=== PATIENT | male | born 1960 | race Hispanic/Latino ===

== ENCOUNTER 2022-05-08 17:38 | Inpatient (IN) | payer BC ==
[~2022-05-08] VITALS: Ht 157.5 cm; Wt 73.2 kg
[~2022-05-08 17:38] MED LIST: EPINEPHRINE 1MG/10ML(1:10,000) 0.1 MG/ML SYG IVP ONE; SUCCINYLCHOLINE CHLORIDE 20 MG/ML 10 ML VIAL IVP ONE
[2022-05-08] MEDS ORDERED: 0.9%NACL 1000ML 1,000 ML IV ONE ×2 (18:30→20:00)
[2022-05-08 18:47] LABS: BASOPHILS % (AUTO) 0.3 % (0.0-5.0); EOSINOPHILS % (AUTO) 0.3 % (0.0-8.0); HEMATOCRIT 30.1 % (42-54); LYMPHOCYTES % (AUTO) 23.5 % (21.0-51.0); MEAN CORPUSCULAR HGB CONC 31.2 g/dL (32.0-36.0); MEAN CORPUSCULAR VOLUME 83.4 fL (79-99); MONOCYTES % (AUTO) 10.6 % (3.0-13.0); NEUTROPHILS % (AUTO) 65.1 % (40.0-77.0); PLATELET COUNT (AUTO) 392 K/uL (130-400); RED BLOOD CELL COUNT(AUTO) 3.61 MIL/uL (4.50-6.20); RED CELL DISTRIBUTION WIDTH 17.3 % (11.0-15.5); WHITE BLOOD COUNT (AUTO) 6.2 K/uL (4.8-10.8)
[2022-05-08 19:04] LABS: ALBUMIN 2.8 g/dL (3.5-5.0); TOTAL PROTEIN, SERUM 5.6 g/dL (6.0-8.3)
[2022-05-08] MEDS ORDERED: NOREPINEPHRIN 4MG/NS 250ML 250 ML IV ONE (19:15)
[2022-05-08 19:34] LABS: APPEARANCE,URINE CLEAR (CLEAR); BILIRUBIN,URINE NEGATIVE (NEGATIVE); COLOR,URINE LIGHT-YELLOW (YELLOW); GLUCOSE, URINE (UA) NEGATIVE (NEGATIVE); KETONES,URINE NEGATIVE (NEGATIVE); LEUKOCYTE ESTERASE ,URINE NEGATIVE Leu/uL (NEGATIVE); NITRATE,URINE NEGATIVE (NEGATIVE); PROTEIN,URINE NEGATIVE (NEGATIVE); UROBILINOGEN,URINE 0.2 mg/dL (0.2-1.0)
[2022-05-08 19:37] LABS: BACTERIA,URINE RARE /HPF (None Seen); MUCUS,URINE RARE LPF (None Seen)
[2022-05-08] MEDS ORDERED: CEFEPIME HCL 2 GM VIAL IVP SCH (20:00)
[2022-05-08] MEDS: NS-20 MEQ KCL 1000ML 1,000 ML IV SCH ×2 (20:04→22:22)
[2022-05-08] MEDS ORDERED: NOREPINEPHRIN 4MG/NS 250ML 250 ML IV SCH (22:00)
[2022-05-09] VITALS (20 sets, daily range): BP systolic 112–154; BP diastolic 71–98
[2022-05-09] MEDS ORDERED: ONDANSETRON 4MG INJ IVP PRN (08:00)
[2022-05-09] MEDS ORDERED: HYDRALAZINE 20MG/ML VIAL IV PRN (08:00)
[2022-05-09] MEDS ORDERED: LABETALOL 20MG SYG IV PRN (08:00)
[2022-05-09 08:16] LABS: HEMATOCRIT 34.7 % (42-54); MEAN CORPUSCULAR HEMOGLOBIN 26.6 pg (27.0-33.0); MEAN CORPUSCULAR HGB CONC 31.4 g/dL (32.0-36.0); MEAN CORPUSCULAR VOLUME 84.6 fL (79-99); RED BLOOD CELL COUNT(AUTO) 4.1 MIL/uL (4.50-6.20); RED CELL DISTRIBUTION WIDTH 17.2 % (11.0-15.5)
[2022-05-09 08:28] LABS: CREATININE 0.7 mg/dL (0.5-1.5); POTASSIUM 3.7 mmol/L (3.5-5.1)
[2022-05-09] MEDS ORDERED: DEXTROSE 5 %-0.45 % NACL 1,000 ML IV SCH (10:00)
[2022-05-09] MEDS ORDERED: 0.9% NACL 250ML 250 ML ONE (10:27)
[2022-05-09] MEDS: DOXYCYCLINE 100MG+NS 250ML IV SCH ×2 (10:28→22:14)
[2022-05-09] MEDS: FLUCONAZOLE 400 MG/NS 200 ML 200 ML IV SCH (10:28)
[2022-05-09] MEDS ORDERED: MEGE40L PO (10:54)
[2022-05-09] MEDS ORDERED: LEVO100C4 PO (10:54)
[2022-05-09] MEDS ORDERED: NEOM7.5D3 OP (10:54)
[2022-05-09] MEDS ORDERED: PHARMACY COMMUNICATION MISC SCH ×2 (11:00→16:00)
[2022-05-09] MEDS: INSULIN HUMULIN R 100 UNIT/ML 3ML SQ SCH ×3 (11:30→20:27)
[2022-05-09] MEDS: POLY OD SCH ×4 (12:18→22:16)
[2022-05-09] MEDS: NEO OD SCH ×4 (12:18→22:16)
[2022-05-09] MEDS: [UNRECOGNIZED DRUG - OTHER] OD SCH ×4 (12:18→22:16)
[2022-05-09] MEDS ORDERED: DEXTROSE 50%-WATER 50 ML DISP.SYRIN IV ONE (12:26)
[2022-05-09] MEDS ORDERED: DEXTROSE 50%-WATER 50 ML DISP.SYRIN IV PRN (13:00)
[2022-05-09] MEDS ORDERED: GLUCAGON 1MG KIT 1 MG ML IM PRN (13:00)
[2022-05-09] MEDS: LIDOCAINE HCL-MPF 1% 2ML VIAL IV PRN (13:42)
[2022-05-09] MEDS: POTASSIUM CHLORIDE 20MEQ/100ML 100 ML IV PRN (13:42)
[2022-05-09] MEDS ORDERED: DEXTROSE 5 % AND 0.9 % NACL 1,000 ML IV SCH (13:44)
[2022-05-09] MEDS ORDERED: SODIUM CHLORIDE 3% FOR INHALATION 4 ML/AMP VIAL.NEB IH ONE (15:54)
[2022-05-09] MEDS ORDERED: CEFEPIME HCL 2 GM VIAL IVPB SCH (20:00)
[2022-05-09] MEDS: SODIUM HYPOCHLORITE 0.25% [HALF STRENGTH] 473 ML TOPICAL SOLN TP SCH (20:32)
[2022-05-10 00:14] VITALS: BP 147/96
[2022-05-10 03:59] VITALS: BP 143/83
[2022-05-10] MEDS: LEVOTHYROXINE 100 MCG TABLET PO SCH (04:44)
[2022-05-10 05:00] LABS: BASOPHILS % (AUTO) 0.3 % (0.0-5.0); EOSINOPHILS % (AUTO) 0.1 % (0.0-8.0); HEMATOCRIT 34.9 % (42-54); LYMPHOCYTES % (AUTO) 10.4 % (21.0-51.0); MEAN CORPUSCULAR HEMOGLOBIN 26.3 pg (27.0-33.0); MEAN CORPUSCULAR HGB CONC 31.5 g/dL (32.0-36.0); MEAN CORPUSCULAR VOLUME 83.5 fL (79-99); MONOCYTES % (AUTO) 7.4 % (3.0-13.0); NEUTROPHILS % (AUTO) 81.4 % (40.0-77.0); PLATELET COUNT (AUTO) 329 K/uL (130-400); RED BLOOD CELL COUNT(AUTO) 4.18 MIL/uL (4.50-6.20); RED CELL DISTRIBUTION WIDTH 17.2 % (11.0-15.5); WHITE BLOOD COUNT (AUTO) 7.7 K/uL (4.8-10.8)
[2022-05-10 05:18] LABS: CREATININE 0.7 mg/dL (0.5-1.5); MAGNESIUM 0.7 mg/dL (1.80-2.40); PHOSPHORUS 2.6 mg/dL (2.5-4.9); POTASSIUM 3.1 mmol/L (3.5-5.1)
[2022-05-10 05:23] LABS: % IRON SATURATION 5.6 % (30-44)
[2022-05-10 05:52] LABS: B-TYPE NATRIURETIC PEPTIDE 157 pg/mL (0-100)
[2022-05-10] MEDS: INSULIN HUMULIN R 100 UNIT/ML 3ML SQ SCH ×4 (05:52→21:00)
[2022-05-10] MEDS: LIDOCAINE HCL-MPF 1% 2ML VIAL IV PRN ×2 (05:53→15:11)
[2022-05-10] MEDS: POTASSIUM CHLORIDE 20MEQ/100ML 100 ML IV PRN ×2 (05:53→15:11)
[2022-05-10] MEDS: POLY OD SCH ×4 (05:54→21:41)
[2022-05-10] MEDS: [UNRECOGNIZED DRUG - OTHER] OD SCH ×4 (05:54→21:41)
[2022-05-10] MEDS: NEO OD SCH ×4 (05:54→21:41)
[2022-05-10 08:07] VITALS: BP 127/87
[2022-05-10] MEDS: DRONABINOL 2.5 MG CAP PO SCH (09:09)
[2022-05-10] MEDS: FLUCONAZOLE 400 MG/NS 200 ML 200 ML IV SCH (09:09)
[2022-05-10] MEDS: SODIUM HYPOCHLORITE 0.25% [HALF STRENGTH] 473 ML TOPICAL SOLN TP SCH ×2 (09:11→21:40)
[2022-05-10] MEDS: DOXYCYCLINE 100MG+NS 250ML IV SCH ×2 (09:55→21:39)
[2022-05-10 11:35] VITALS: BP 113/80
[2022-05-10] MEDS: MAGNESIUM 2GM PREMIX 50ML 50 ML IV SCH ×2 (13:01→17:15)
[2022-05-10 15:49] VITALS: BP 127/79
[2022-05-10 20:51] VITALS: BP 138/69
[2022-05-10] MEDS ORDERED: 0.9% NACL 250ML 250 ML ONE (21:38)
[2022-05-11] VITALS (7 sets, daily range): BP systolic 124–156; BP diastolic 63–91
[2022-05-11] MEDS: POTASSIUM CHLORIDE 20MEQ/100ML 100 ML IV PRN (01:03)
[2022-05-11] MEDS: LIDOCAINE HCL-MPF 1% 2ML VIAL IV PRN (01:04)
[2022-05-11] MEDS: LEVOTHYROXINE 100 MCG TABLET PO SCH (03:32)
[2022-05-11 04:33] LABS: BASOPHILS % (AUTO) 0.6 % (0.0-5.0); EOSINOPHILS % (AUTO) 0.3 % (0.0-8.0); HEMATOCRIT 34.4 % (42-54); LYMPHOCYTES % (AUTO) 11.5 % (21.0-51.0); MEAN CORPUSCULAR HEMOGLOBIN 26.4 pg (27.0-33.0); MEAN CORPUSCULAR HGB CONC 31.1 g/dL (32.0-36.0); MEAN CORPUSCULAR VOLUME 84.9 fL (79-99); MONOCYTES % (AUTO) 9.8 % (3.0-13.0); NEUTROPHILS % (AUTO) 77.5 % (40.0-77.0); PLATELET COUNT (AUTO) 352 K/uL (130-400); RED BLOOD CELL COUNT(AUTO) 4.05 MIL/uL (4.50-6.20); RED CELL DISTRIBUTION WIDTH 17.2 % (11.0-15.5); WHITE BLOOD COUNT (AUTO) 6.6 K/uL (4.8-10.8)
[2022-05-11 04:53] LABS: CREATININE 0.7 mg/dL (0.5-1.5); MAGNESIUM 1.5 mg/dL (1.80-2.40); POTASSIUM 3.2 mmol/L (3.5-5.1)
[2022-05-11] MEDS: NEO OD SCH ×3 (05:04→17:34)
[2022-05-11] MEDS: POLY OD SCH ×3 (05:04→17:34)
[2022-05-11] MEDS: [UNRECOGNIZED DRUG - OTHER] OD SCH ×3 (05:04→17:34)
[2022-05-11] MEDS: MAGNESIUM 2GM PREMIX 50ML 50 ML IV PRN (05:43)
[2022-05-11] MEDS: INSULIN HUMULIN R 100 UNIT/ML 3ML SQ SCH ×4 (06:17→21:00)
[2022-05-11] MEDS: IPRATROPIUM/ALBUTEROL SULFATE 3 ML SOLUTION IH SCH ×5 (06:52→22:00)
[2022-05-11] MEDS ORDERED: IPRATROPIUM 0.5 MG/2.5 ML INH IH ONE ×4 (07:14→18:26)
[2022-05-11] MEDS ORDERED: ALBUTEROL 0.042% 1.25MG/3ML IH ONE ×4 (07:14→18:22)
[2022-05-11] MEDS: FLUCONAZOLE 400 MG/NS 200 ML 200 ML IV SCH (08:43)
[2022-05-11] MEDS: DRONABINOL 2.5 MG CAP PO SCH (08:44)
[2022-05-11] MEDS: SODIUM HYPOCHLORITE 0.25% [HALF STRENGTH] 473 ML TOPICAL SOLN TP SCH (08:44)
[2022-05-11] MEDS ORDERED: 0.9% NACL 250ML 250 ML ONE (10:17)
[2022-05-11] MEDS: DOXYCYCLINE 100MG+NS 250ML IV SCH ×2 (10:19→21:41)
[2022-05-11 13:25] LABS: INR 1.05 (0.85-1.15); PROTHROMBIN TIME 11.4 SEC (9.6-11.6)
[2022-05-11 13:27] LABS: PARTIAL THROMBOPLASTIN TIME 29.8 SEC (26.3-35.5)
[2022-05-12] MEDS: POLY OD SCH ×5 (00:08→23:30)
[2022-05-12] MEDS: [UNRECOGNIZED DRUG - OTHER] OD SCH ×5 (00:08→23:30)
[2022-05-12] MEDS: SODIUM HYPOCHLORITE 0.25% [HALF STRENGTH] 473 ML TOPICAL SOLN TP SCH ×3 (00:08→22:28)
[2022-05-12] MEDS: NEO OD SCH ×5 (00:08→23:30)
[2022-05-12] MEDS: IPRATROPIUM/ALBUTEROL SULFATE 3 ML SOLUTION IH SCH ×5 (02:00→18:00)
[2022-05-12] MEDS ORDERED: ALBUTEROL 0.042% 1.25MG/3ML IH ONE ×4 (02:11→22:58)
[2022-05-12] MEDS ORDERED: IPRATROPIUM 0.5 MG/2.5 ML INH IH ONE ×5 (02:12→23:09)
[2022-05-12 03:25] VITALS: BP 118/65
[2022-05-12 04:40] LABS: BASOPHILS % (AUTO) 0.5 % (0.0-5.0); EOSINOPHILS % (AUTO) 0.5 % (0.0-8.0); HEMATOCRIT 31.5 % (42-54); LYMPHOCYTES % (AUTO) 10.3 % (21.0-51.0); MEAN CORPUSCULAR HEMOGLOBIN 26.4 pg (27.0-33.0); MEAN CORPUSCULAR HGB CONC 30.8 g/dL (32.0-36.0); MEAN CORPUSCULAR VOLUME 85.8 fL (79-99); MONOCYTES % (AUTO) 10.6 % (3.0-13.0); NEUTROPHILS % (AUTO) 77.8 % (40.0-77.0); PLATELET COUNT (AUTO) 300 K/uL (130-400); RED BLOOD CELL COUNT(AUTO) 3.67 MIL/uL (4.50-6.20); RED CELL DISTRIBUTION WIDTH 17.5 % (11.0-15.5); WHITE BLOOD COUNT (AUTO) 6.1 K/uL (4.8-10.8)
[2022-05-12 05:00] LABS: CREATININE 0.6 mg/dL (0.5-1.5); PHOSPHORUS 2.8 mg/dL (2.5-4.9)
[2022-05-12] MEDS: LEVOTHYROXINE 100 MCG TABLET PO SCH (05:15)
[2022-05-12] MEDS: POTASSIUM CHLORIDE 20MEQ/100ML 100 ML IV PRN ×2 (05:18→06:54)
[2022-05-12] MEDS: INSULIN HUMULIN R 100 UNIT/ML 3ML SQ SCH ×4 (07:30→21:00)
[2022-05-12 08:00] VITALS: BP 132/85
[2022-05-12] MEDS: DRONABINOL 2.5 MG CAP PO SCH (08:35)
[2022-05-12] MEDS: FLUCONAZOLE 400 MG/NS 200 ML 200 ML IV SCH (09:07)
[2022-05-12] MEDS: DOXYCYCLINE 100MG+NS 250ML IV SCH ×2 (10:00→22:28)
[2022-05-12] MEDS ORDERED: 0.9%NACL 1000ML 1,000 ML IV ONE (10:56)
[2022-05-12] MEDS: MAGNESIUM 2GM PREMIX 50ML 50 ML IV SCH ×3 (12:00→18:02)
[2022-05-12] MEDS ORDERED: BENZOCAINE 20% 57 GM SPRAY ONE (13:08)
[2022-05-12] MEDS ORDERED: PROPOFOL 10 MG/ML 20ML VIAL IV ONE ×2 (13:09)
[2022-05-12] MEDS ORDERED: MIDAZOLAM HCL 1 MG/ML 5ML VIAL ONE (13:10)
[2022-05-12] MEDS ORDERED: LIDOCAINE HCL 1% 20 ML VIAL ONE (13:10)
[2022-05-12 16:00] VITALS: BP 141/90
[2022-05-12 19:19] VITALS: BP 107/63
[2022-05-12] MEDS ORDERED: 0.9% NACL 250ML 250 ML ONE (22:07)
[2022-05-12 22:57] VITALS: BP 120/51
[2022-05-13] VITALS (86 sets, daily range): BP systolic 0–146; BP diastolic 0–93
[2022-05-13 04:27] LABS: BASOPHILS % (AUTO) 0.7 % (0.0-5.0); EOSINOPHILS % (AUTO) 0.5 % (0.0-8.0); HEMATOCRIT 32.6 % (42-54); LYMPHOCYTES % (AUTO) 13.3 % (21.0-51.0); MEAN CORPUSCULAR HEMOGLOBIN 26.4 pg (27.0-33.0); MEAN CORPUSCULAR HGB CONC 29.1 g/dL (32.0-36.0); MEAN CORPUSCULAR VOLUME 90.6 fL (79-99); MONOCYTES % (AUTO) 10.7 % (3.0-13.0); NEUTROPHILS % (AUTO) 74.6 % (40.0-77.0); PLATELET COUNT (AUTO) 311 K/uL (130-400); RED CELL DISTRIBUTION WIDTH 17.9 % (11.0-15.5); WHITE BLOOD COUNT (AUTO) 5.7 K/uL (4.8-10.8)
[2022-05-13 04:34] LABS: CREATININE 0.6 mg/dL (0.5-1.5); MAGNESIUM 1.3 mg/dL (1.80-2.40)
[2022-05-13 04:39] LABS: POTASSIUM 2.9 mmol/L (3.5-5.1)
[2022-05-13] MEDS: [UNRECOGNIZED DRUG - OTHER] OD SCH ×4 (05:30→21:38)
[2022-05-13] MEDS: POLY OD SCH ×4 (05:30→21:38)
[2022-05-13] MEDS: NEO OD SCH ×4 (05:30→21:38)
[2022-05-13 05:37] LABS: ABG BASE EXCESS -7.1 mmol/L (-2.0-3.0); ABG HCO3 19.7 mmol/L (21.0-28.0); ABG OXYGEN SATURATION 99.7 % (95.0-99.0); ABG PCO2 45 mmHg (35-48)
[2022-05-13] MEDS ORDERED: PROPOFOL 1000 MG/100 ML 100 ML IV ONE (05:45)
[2022-05-13] MEDS: IPRATROPIUM/ALBUTEROL SULFATE 3 ML SOLUTION IH SCH ×3 (06:00→11:29)
[2022-05-13] MEDS ORDERED: SODIUM BICARB 50MEQ 50ML VIAL 150 ML ONE (06:29)
[2022-05-13] MEDS ORDERED: SODIUM BICARB 50MEQ 50ML VIAL IV SCH (06:30)
[2022-05-13] MEDS: LEVOTHYROXINE 100 MCG TABLET PO SCH (06:30)
[2022-05-13] MEDS ORDERED: NOREPINEPHRIN 4MG/NS 250ML 250 ML IV ONE (06:37)
[2022-05-13] MEDS ORDERED: ALBUTEROL 0.042% 1.25MG/3ML IH ONE ×4 (06:51→22:48)
[2022-05-13] MEDS ORDERED: IPRATROPIUM 0.5 MG/2.5 ML INH IH ONE ×4 (06:53→23:09)
[2022-05-13] MEDS: INSULIN HUMULIN R 100 UNIT/ML 3ML SQ SCH ×4 (07:30→21:00)
[2022-05-13] MEDS: DRONABINOL 2.5 MG CAP PO SCH (07:38)
[2022-05-13 08:11] LABS: ABG BASE EXCESS 7.5 mmol/L (-2.0-3.0); ABG HCO3 32.5 mmol/L (21.0-28.0); ABG OXYGEN SATURATION 99.2 % (95.0-99.0); ABG PCO2 47 mmHg (35-48)
[2022-05-13] MEDS: FLUCONAZOLE 400 MG/NS 200 ML 200 ML IV SCH (08:25)
[2022-05-13] MEDS: MAGNESIUM 2GM PREMIX 50ML 50 ML IV PRN ×3 (08:26→21:32)
[2022-05-13] MEDS: POTASSIUM CHLORIDE 20MEQ/100ML 100 ML IV PRN ×6 (08:39→22:46)
[2022-05-13] MEDS: SODIUM HYPOCHLORITE 0.25% [HALF STRENGTH] 473 ML TOPICAL SOLN TP SCH ×2 (08:39→21:38)
[2022-05-13] MEDS: PROPOFOL 1000 MG/100 ML IV PRN ×2 (10:17→14:39)
[2022-05-13] MEDS: DOXYCYCLINE 100MG+NS 250ML IV SCH (10:18)
[2022-05-13] MEDS ORDERED: VANCOMYCIN 1G VIAL IVPB SCH (14:00)
[2022-05-13] MEDS ORDERED: 0.9% NACL 250ML IV SCH (14:00)
[2022-05-13] MEDS ORDERED: VANCOMYCIN PROTOCOL PER PHARMACY IV SCH (14:00)
[2022-05-13] MEDS ORDERED: RENAL DOSE IV PRN (14:00)
[2022-05-13 14:21] LABS: APPEARANCE,URINE CLEAR (CLEAR); BILIRUBIN,URINE NEGATIVE (NEGATIVE); COLOR,URINE LIGHT-YELLOW (YELLOW); GLUCOSE, URINE (UA) 300 mg/dL (NEGATIVE); KETONES,URINE NEGATIVE (NEGATIVE); LEUKOCYTE ESTERASE ,URINE NEGATIVE Leu/uL (NEGATIVE); MUCUS,URINE RARE LPF (None Seen); NITRATE,URINE NEGATIVE (NEGATIVE); OCCULT BLOOD,URINE NEGATIVE (NEGATIVE); OTHER CASTS, URINE 1 /LPF (None Seen); PH,URINE 7.5 (5.0-8.0); PROTEIN,URINE NEGATIVE (NEGATIVE); SQUAMOUS EPITHELIAL CELL,UR RARE /HPF (0-2); UROBILINOGEN,URINE 0.2 mg/dL (0.2-1.0); WBC,URINE 0-1 /HPF (0-1)
[2022-05-13] MEDS: NOREPINEPHRIN 4MG/NS 250ML 250 ML IV PRN ×2 (14:40→22:24)
[2022-05-13] MEDS: MEROPENEM 1 GM VIAL IVP SCH (14:40)
[2022-05-13] MEDS ORDERED: FENTANYL 2500MCG+NS 250ML IV.SOLN IV SCH (15:00)
[2022-05-13] MEDS: FENTANYL 2500MCG+NS 250ML 250 ML IV SCH (15:33)
[2022-05-13] MEDS: DEXAMETHASONE SOD PHOSPHATE 4 MG/ML 1ML VIAL IV SCH ×2 (15:51→21:31)
[2022-05-13] MEDS: VANCOMYCIN 1.5 GM/250 ML BAG 250 ML IV SCH (15:52)
[2022-05-13 16:23] LABS: MAGNESIUM 1.5 mg/dL (1.80-2.40)
[2022-05-13 16:28] LABS: POTASSIUM 2.7 mmol/L (3.5-5.1)
[2022-05-13] MEDS ORDERED: MIDAZOLAM 100MG-0.9% NS 100ML 100ML BAG IV ONE (18:00)
[2022-05-13] MEDS: MIDAZOLAM 100MG-0.9% NS 100ML 100 ML IV SCH (18:03)
[2022-05-13 21:17] LABS: MAGNESIUM 1.6 mg/dL (1.80-2.40); POTASSIUM 3.3 mmol/L (3.5-5.1)
[2022-05-14] VITALS (84 sets, daily range): BP systolic 89–133; BP diastolic 51–82
[2022-05-14] MEDS ORDERED: IOHEXOL 350 MG/ML 100ML INFUS..BTL IV ONE (00:32)
[2022-05-14] MEDS: MEROPENEM 1 GM VIAL IVP SCH ×2 (02:48→13:44)
[2022-05-14] MEDS: DEXAMETHASONE SOD PHOSPHATE 4 MG/ML 1ML VIAL IV SCH ×4 (02:54→20:20)
[2022-05-14 05:08] LABS: HEMATOCRIT 29.8 % (42-54); LYMPHOCYTES % (AUTO) 5.1 % (21.0-51.0); MEAN CORPUSCULAR HEMOGLOBIN 26.7 pg (27.0-33.0); MEAN CORPUSCULAR HGB CONC 32.6 g/dL (32.0-36.0); MEAN CORPUSCULAR VOLUME 82.1 fL (79-99); MONOCYTES % (AUTO) 2.3 % (3.0-13.0); NEUTROPHILS % (AUTO) 92.1 % (40.0-77.0); PLATELET COUNT (AUTO) 376 K/uL (130-400); RED BLOOD CELL COUNT(AUTO) 3.63 MIL/uL (4.50-6.20); RED CELL DISTRIBUTION WIDTH 17.7 % (11.0-15.5); WHITE BLOOD COUNT (AUTO) 9.5 K/uL (4.8-10.8)
[2022-05-14 05:32] LABS: ALBUMIN 2.4 g/dL (3.5-5.0); CREATININE 0.7 mg/dL (0.5-1.5); MAGNESIUM 1.8 mg/dL (1.80-2.40); PHOSPHORUS 1.5 mg/dL (2.5-4.9); THYROID STIMULATING HORMONE 1.82 uIU/mL (0.36-3.74); TOTAL PROTEIN, SERUM 5.2 g/dL (6.0-8.3)
[2022-05-14] MEDS: NEO OD SCH ×3 (06:15→17:38)
[2022-05-14] MEDS: LEVOTHYROXINE 100 MCG TABLET PO SCH (06:15)
[2022-05-14] MEDS: POLY OD SCH ×3 (06:15→17:38)
[2022-05-14] MEDS: [UNRECOGNIZED DRUG - OTHER] OD SCH ×3 (06:15→17:38)
[2022-05-14] MEDS ORDERED: IPRATROPIUM 0.5 MG/2.5 ML INH IH ONE (06:17)
[2022-05-14] MEDS ORDERED: ALBUTEROL 0.042% 1.25MG/3ML IH ONE ×7 (06:25→23:07)
[2022-05-14] MEDS: INSULIN HUMULIN R 100 UNIT/ML 3ML SQ SCH ×4 (06:38→20:22)
[2022-05-14 07:27] LABS: ABG BASE EXCESS 5.8 mmol/L (-2.0-3.0); ABG HCO3 28.9 mmol/L (21.0-28.0); ABG OXYGEN SATURATION 98.4 % (95.0-99.0); ABG PCO2 37 mmHg (35-48)
[2022-05-14] MEDS ORDERED: POTASSIUM PHOS 15 mMOL+NS250ML 250 ML IV PRN (07:30)
[2022-05-14] MEDS: NOREPINEPHRIN 4MG/NS 250ML 250 ML IV PRN (08:11)
[2022-05-14] MEDS: FLUCONAZOLE 400 MG/NS 200 ML 200 ML IV SCH (08:28)
[2022-05-14] MEDS: PANTOPRAZOLE 40 MG/VIAL IVP SCH ×2 (09:33→20:20)
[2022-05-14] MEDS: ENOXAPARIN SODIUM 40 MG/0.4 ML SYRINGE SQ SCH (09:34)
[2022-05-14] MEDS: SODIUM HYPOCHLORITE 0.25% [HALF STRENGTH] 473 ML TOPICAL SOLN TP SCH ×2 (09:35→20:21)
[2022-05-14] MEDS: VANCOMYCIN 1.5 GM/250 ML BAG 250 ML IV SCH (15:04)
[2022-05-14] MEDS: FENTANYL 2500MCG+NS 250ML 250 ML IV SCH (18:04)
[2022-05-14] MEDS: MAGNESIUM 2GM PREMIX 50ML 50 ML IV PRN (20:21)
[2022-05-15] VITALS (93 sets, daily range): BP systolic 61–150; BP diastolic 25–84
[2022-05-15] MEDS: POLY OD SCH ×4 (00:32→17:49)
[2022-05-15] MEDS: [UNRECOGNIZED DRUG - OTHER] OD SCH ×4 (00:32→17:49)
[2022-05-15] MEDS: NEO OD SCH ×4 (00:32→17:49)
[2022-05-15] MEDS: NOREPINEPHRIN 4MG/NS 250ML 250 ML IV PRN (00:58)
[2022-05-15] MEDS ORDERED: 0.9%NACL 100ML 100 ML ONE ×2 (01:25→14:44)
[2022-05-15] MEDS: MEROPENEM 1 GM VIAL IVP SCH ×2 (01:26→14:55)
[2022-05-15] MEDS: MIDAZOLAM 100MG-0.9% NS 100ML 100 ML IV SCH (01:38)
[2022-05-15] MEDS: DEXAMETHASONE SOD PHOSPHATE 4 MG/ML 1ML VIAL IV SCH ×4 (02:27→20:49)
[2022-05-15 03:45] LABS: BASOPHILS % (AUTO) 0.1 % (0.0-5.0); HEMATOCRIT 30.1 % (42-54); MEAN CORPUSCULAR HEMOGLOBIN 26.9 pg (27.0-33.0); MEAN CORPUSCULAR HGB CONC 31.9 g/dL (32.0-36.0); MEAN CORPUSCULAR VOLUME 84.3 fL (79-99); MONOCYTES % (AUTO) 1.9 % (3.0-13.0); NEUTROPHILS % (AUTO) 93.1 % (40.0-77.0); PLATELET COUNT (AUTO) 335 K/uL (130-400); RED BLOOD CELL COUNT(AUTO) 3.57 MIL/uL (4.50-6.20); RED CELL DISTRIBUTION WIDTH 18.3 % (11.0-15.5); WHITE BLOOD COUNT (AUTO) 17.7 K/uL (4.8-10.8)
[2022-05-15 04:08] LABS: ALBUMIN 2.3 g/dL (3.5-5.0); CREATININE 0.7 mg/dL (0.5-1.5); MAGNESIUM 1.7 mg/dL (1.80-2.40); PHOSPHORUS 3.7 mg/dL (2.5-4.9); POTASSIUM 4.1 mmol/L (3.5-5.1)
[2022-05-15] MEDS: LEVOTHYROXINE 100 MCG TABLET PO SCH (05:39)
[2022-05-15] MEDS: MAGNESIUM 2GM PREMIX 50ML 50 ML IV PRN (05:39)
[2022-05-15] MEDS ORDERED: ALBUTEROL 0.042% 1.25MG/3ML IH ONE ×4 (06:15→18:05)
[2022-05-15] MEDS: INSULIN HUMULIN R 100 UNIT/ML 3ML SQ SCH ×4 (06:31→21:00)
[2022-05-15] MEDS ORDERED: 0.9%NACL 1000ML 1,000 ML IV ONE (07:50)
[2022-05-15 07:54] LABS: ABG HCO3 25.3 mmol/L (21.0-28.0); ABG OXYGEN SATURATION 99.9 % (95.0-99.0); ABG PCO2 20 mmHg (35-48)
[2022-05-15] MEDS ORDERED: PHENYLEPHRINE HCL 10 MG in 0.9% NACL 250ML 250 ML IV PRN (08:00)
[2022-05-15] MEDS: PANTOPRAZOLE 40 MG/VIAL IVP SCH ×2 (08:17→20:38)
[2022-05-15] MEDS: FLUCONAZOLE 400 MG/NS 200 ML 200 ML IV SCH (08:17)
[2022-05-15] MEDS: ENOXAPARIN SODIUM 40 MG/0.4 ML SYRINGE SQ SCH (08:18)
[2022-05-15] MEDS: SODIUM HYPOCHLORITE 0.25% [HALF STRENGTH] 473 ML TOPICAL SOLN TP SCH ×2 (08:19→20:52)
[2022-05-15] MEDS: MIDODRINE HCL 5 MG TABLET PO SCH ×3 (08:37→20:38)
[2022-05-15] MEDS: ARTIFICAL TEARS SOL 15 ML OU SCH ×2 (10:22→20:38)
[2022-05-15] MEDS: VANCOMYCIN 1.5 GM/250 ML BAG 250 ML IV SCH (15:26)
[2022-05-15] MEDS: LACTULOSE 20 GM/30 ML UDCUP PO PRN (15:55)
[2022-05-15] MEDS: FENTANYL 2500MCG+NS 250ML 250 ML IV SCH (18:07)
[2022-05-16] VITALS (69 sets, daily range): BP systolic 89–147; BP diastolic 43–88
[2022-05-16] MEDS: POLY OD SCH ×3 (00:16→11:30)
[2022-05-16] MEDS: NEO OD SCH ×3 (00:16→11:30)
[2022-05-16] MEDS: [UNRECOGNIZED DRUG - OTHER] OD SCH ×3 (00:16→11:30)
[2022-05-16] MEDS ORDERED: ALBUTEROL 0.042% 1.25MG/3ML IH ONE ×6 (00:20→18:21)
[2022-05-16] MEDS: MEROPENEM 1 GM VIAL IVP SCH ×2 (01:59→14:21)
[2022-05-16] MEDS: DEXAMETHASONE SOD PHOSPHATE 4 MG/ML 1ML VIAL IV SCH ×4 (03:09→20:17)
[2022-05-16] MEDS: NOREPINEPHRIN 4MG/NS 250ML 250 ML IV PRN (03:10)
[2022-05-16 04:23] LABS: BASOPHILS % (AUTO) 0.1 % (0.0-5.0); HEMATOCRIT 29.1 % (42-54); LYMPHOCYTES % (AUTO) 2.5 % (21.0-51.0); MEAN CORPUSCULAR HEMOGLOBIN 26.5 pg (27.0-33.0); MEAN CORPUSCULAR HGB CONC 32.3 g/dL (32.0-36.0); MONOCYTES % (AUTO) 2.4 % (3.0-13.0); NEUTROPHILS % (AUTO) 93.9 % (40.0-77.0); PLATELET COUNT (AUTO) 356 K/uL (130-400); RED BLOOD CELL COUNT(AUTO) 3.55 MIL/uL (4.50-6.20); RED CELL DISTRIBUTION WIDTH 18.4 % (11.0-15.5); WHITE BLOOD COUNT (AUTO) 18.2 K/uL (4.8-10.8)
[2022-05-16 04:36] LABS: ALBUMIN 2.2 g/dL (3.5-5.0); MAGNESIUM 1.5 mg/dL (1.80-2.40); POTASSIUM 3.8 mmol/L (3.5-5.1); TOTAL PROTEIN, SERUM 4.8 g/dL (6.0-8.3)
[2022-05-16] MEDS ORDERED: POTASSIUM CHLORIDE 10% ELIXIR 20 MEQ/15 ML UDCUP PO PRN (06:00)
[2022-05-16] MEDS: MAGNESIUM 2GM PREMIX 50ML 50 ML IV PRN (06:08)
[2022-05-16] MEDS: LEVOTHYROXINE 100 MCG TABLET PO SCH (06:09)
[2022-05-16] MEDS: POTASSIUM CHLORIDE 20MEQ/100ML 100 ML IV PRN (06:32)
[2022-05-16] MEDS: INSULIN HUMULIN R 100 UNIT/ML 3ML SQ SCH ×4 (06:53→21:00)
[2022-05-16] MEDS: PANTOPRAZOLE 40 MG/VIAL IVP SCH ×2 (09:01→20:17)
[2022-05-16] MEDS: FLUCONAZOLE 400 MG/NS 200 ML 200 ML IV SCH (09:01)
[2022-05-16] MEDS: ARTIFICAL TEARS SOL 15 ML OU SCH ×2 (09:02→20:17)
[2022-05-16] MEDS: MIDODRINE HCL 5 MG TABLET PO SCH ×3 (09:02→20:17)
[2022-05-16] MEDS: SODIUM HYPOCHLORITE 0.25% [HALF STRENGTH] 473 ML TOPICAL SOLN TP SCH ×2 (09:44→20:32)
[2022-05-16 11:04] LABS: ABG BASE EXCESS 5.4 mmol/L (-2.0-3.0); ABG HCO3 27.7 mmol/L (21.0-28.0); ABG OXYGEN SATURATION 99.1 % (95.0-99.0); ABG PCO2 34 mmHg (35-48)
[2022-05-16] MEDS: ENOXAPARIN SODIUM 40 MG/0.4 ML SYRINGE SQ SCH (14:21)
[2022-05-16] MEDS: VANCOMYCIN 1.5 GM/250 ML BAG 250 ML IV SCH (14:21)
[2022-05-16] MEDS ORDERED: DEXMEDETOMIDINE HCL 400 MCG in 0.9%NACL 100ML 100 ML IV SCH (16:00)
[2022-05-16] MEDS ORDERED: DEXMEDETOMIDINE 400MCG/NS100ML IV SCH (16:00)
[2022-05-17] VITALS (56 sets, daily range): BP systolic 91–157; BP diastolic 55–86
[2022-05-17] MEDS: MEROPENEM 1 GM VIAL IVP SCH ×2 (02:03→15:49)
[2022-05-17 04:19] LABS: BASOPHILS % (AUTO) 0.1 % (0.0-5.0); HEMATOCRIT 31.5 % (42-54); LYMPHOCYTES % (AUTO) 2.4 % (21.0-51.0); MEAN CORPUSCULAR HEMOGLOBIN 26.3 pg (27.0-33.0); MEAN CORPUSCULAR HGB CONC 31.1 g/dL (32.0-36.0); MEAN CORPUSCULAR VOLUME 84.7 fL (79-99); MONOCYTES % (AUTO) 2.1 % (3.0-13.0); NEUTROPHILS % (AUTO) 94.6 % (40.0-77.0); PLATELET COUNT (AUTO) 343 K/uL (130-400); RED BLOOD CELL COUNT(AUTO) 3.72 MIL/uL (4.50-6.20); RED CELL DISTRIBUTION WIDTH 18.5 % (11.0-15.5); WHITE BLOOD COUNT (AUTO) 15.6 K/uL (4.8-10.8)
[2022-05-17 04:30] LABS: INR 1.01 (0.85-1.15)
[2022-05-17 04:31] LABS: PARTIAL THROMBOPLASTIN TIME 27.6 SEC (26.3-35.5)
[2022-05-17 04:49] LABS: ALBUMIN 2.4 g/dL (3.5-5.0); CREATININE 0.9 mg/dL (0.5-1.5); MAGNESIUM 1.6 mg/dL (1.80-2.40); PHOSPHORUS 3.2 mg/dL (2.5-4.9); POTASSIUM 3.8 mmol/L (3.5-5.1)
[2022-05-17] MEDS: LEVOTHYROXINE 100 MCG TABLET PO SCH (05:00)
[2022-05-17] MEDS ORDERED: VANCOMYCIN 750MG VIAL IVPB SCH (06:00)
[2022-05-17] MEDS: INSULIN HUMULIN R 100 UNIT/ML 3ML SQ SCH ×4 (07:28→16:30)
[2022-05-17 07:34] LABS: ABG BASE EXCESS 6.2 mmol/L (-2.0-3.0); ABG HCO3 30.7 mmol/L (21.0-28.0); ABG OXYGEN SATURATION 95.7 % (95.0-99.0); ABG PCO2 44 mmHg (35-48)
[2022-05-17] MEDS: ENOXAPARIN SODIUM 40 MG/0.4 ML SYRINGE SQ SCH (08:52)
[2022-05-17] MEDS: MIDODRINE HCL 5 MG TABLET PO SCH ×3 (08:52→20:50)
[2022-05-17] MEDS: PANTOPRAZOLE 40 MG/VIAL IVP SCH ×2 (08:56→20:50)
[2022-05-17] MEDS: DEXAMETHASONE SOD PHOSPHATE 4 MG/ML 1ML VIAL IV SCH ×2 (08:57→20:50)
[2022-05-17] MEDS: SODIUM HYPOCHLORITE 0.25% [HALF STRENGTH] 473 ML TOPICAL SOLN TP SCH ×2 (08:57→20:53)
[2022-05-17] MEDS: FLUCONAZOLE 400 MG/NS 200 ML 200 ML IV SCH (08:57)
[2022-05-17] MEDS: ARTIFICAL TEARS SOL 15 ML OU SCH ×2 (08:58→20:53)
[2022-05-17] MEDS: MAGNESIUM 2GM PREMIX 50ML 50 ML IV PRN (11:20)
[2022-05-17] MEDS ORDERED: PHENYLEPHRINE HCL 10 MG/ML 1ML VIAL IV ONE (11:42)
[2022-05-17] MEDS ORDERED: PROPOFOL 10 MG/ML 20ML VIAL IV ONE (11:42)
[2022-05-17] MEDS ORDERED: VANCOMYCIN 1.5 GM/250 ML BAG 250 ML IV ONE (15:00)
[2022-05-18] VITALS (67 sets, daily range): BP systolic 33–156; BP diastolic 17–98
[2022-05-18] MEDS: MEROPENEM 1 GM VIAL IVP SCH ×2 (01:39→13:45)
[2022-05-18 03:53] LABS: ABG BASE EXCESS 6.5 mmol/L (-2.0-3.0); ABG HCO3 29.1 mmol/L (21.0-28.0); ABG OXYGEN SATURATION 98.1 % (95.0-99.0); ABG PCO2 34 mmHg (35-48)
[2022-05-18] MEDS: NOREPINEPHRIN 4MG/NS 250ML 250 ML IV PRN (03:54)
[2022-05-18 04:00] LABS: BASOPHILS % (AUTO) 0.1 % (0.0-5.0); HEMATOCRIT 27.3 % (42-54); LYMPHOCYTES % (AUTO) 3.2 % (21.0-51.0); MEAN CORPUSCULAR HEMOGLOBIN 26.4 pg (27.0-33.0); MEAN CORPUSCULAR HGB CONC 31.9 g/dL (32.0-36.0); PLATELET COUNT (AUTO) 250 K/uL (130-400); RED BLOOD CELL COUNT(AUTO) 3.29 MIL/uL (4.50-6.20); WHITE BLOOD COUNT (AUTO) 11.4 K/uL (4.8-10.8)
[2022-05-18 04:19] LABS: CREATININE 0.8 mg/dL (0.5-1.5); POTASSIUM 3.7 mmol/L (3.5-5.1)
[2022-05-18] MEDS: VANCOMYCIN 750MG VIAL IVPB SCH ×2 (05:03→17:10)
[2022-05-18] MEDS: LEVOTHYROXINE 100 MCG TABLET PO SCH (05:03)
[2022-05-18] MEDS: INSULIN HUMULIN R 100 UNIT/ML 3ML SQ SCH ×4 (07:30→21:00)
[2022-05-18] MEDS: ARTIFICAL TEARS SOL 15 ML OU SCH ×2 (08:51→21:06)
[2022-05-18] MEDS: MIDODRINE HCL 5 MG TABLET PO SCH ×3 (08:52→21:05)
[2022-05-18] MEDS: ENOXAPARIN SODIUM 40 MG/0.4 ML SYRINGE SQ SCH (08:52)
[2022-05-18] MEDS: FLUCONAZOLE 400 MG/NS 200 ML 200 ML IV SCH (08:52)
[2022-05-18] MEDS: PANTOPRAZOLE 40 MG/VIAL IVP SCH ×2 (08:52→21:05)
[2022-05-18] MEDS: DEXAMETHASONE SOD PHOSPHATE 4 MG/ML 1ML VIAL IV SCH ×2 (08:53→21:05)
[2022-05-18] MEDS: SODIUM HYPOCHLORITE 0.25% [HALF STRENGTH] 473 ML TOPICAL SOLN TP SCH ×2 (13:52→21:06)
[2022-05-18] MEDS: ACETAMINOPHEN 325 MG TAB PO PRN (17:21)
[2022-05-19] VITALS (49 sets, daily range): BP systolic 97–176; BP diastolic 48–132
[2022-05-19] MEDS: MEROPENEM 1 GM VIAL IVP SCH ×2 (01:00→13:21)
[2022-05-19 04:22] LABS: ABG BASE EXCESS 8.8 mmol/L (-2.0-3.0); ABG HCO3 32.1 mmol/L (21.0-28.0); ABG OXYGEN SATURATION 97.9 % (95.0-99.0); ABG PCO2 39 mmHg (35-48)
[2022-05-19] MEDS ORDERED: VASOPRESSIN 20 UNITS/ML 1ML VIAL ONE (05:31)
[2022-05-19] MEDS ORDERED: ALBUMIN (HUMAN) 5% 250 ML IV ONE (05:32)
[2022-05-19] MEDS ORDERED: LIDOCAINE 1%-EPI 1:100,000 20 ML VIAL IJ ONE ×2 (05:34→08:07)
[2022-05-19] MEDS: LEVOTHYROXINE 100 MCG TABLET PO SCH (06:08)
[2022-05-19 07:12] LABS: HEMATOCRIT 30.3 % (42-54); MEAN CORPUSCULAR HEMOGLOBIN 26.5 pg (27.0-33.0); MEAN CORPUSCULAR VOLUME 82.8 fL (79-99); MONOCYTES % (AUTO) 4.2 % (3.0-13.0); NEUTROPHILS % (AUTO) 90.1 % (40.0-77.0); PLATELET COUNT (AUTO) 279 K/uL (130-400); RED BLOOD CELL COUNT(AUTO) 3.66 MIL/uL (4.50-6.20); RED CELL DISTRIBUTION WIDTH 18.2 % (11.0-15.5); WHITE BLOOD COUNT (AUTO) 10.2 K/uL (4.8-10.8)
[2022-05-19 07:22] LABS: CREATININE 0.7 mg/dL (0.5-1.5); POTASSIUM 3.8 mmol/L (3.5-5.1)
[2022-05-19] MEDS ORDERED: PROPOFOL 10 MG/ML 20ML VIAL IV ONE (07:25)
[2022-05-19] MEDS ORDERED: MIDAZOLAM HCL 1 MG/ML 2ML VIAL ONE (07:25)
[2022-05-19] MEDS ORDERED: FENTANYL CITRATE PF 50 MCG/1 ML 2ML VIAL ONE (07:26)
[2022-05-19] MEDS ORDERED: PHENYLEPHRINE HCL 10 MG/ML 1ML VIAL IV ONE (07:26)
[2022-05-19] MEDS ORDERED: ROCURONIUM 10MG/1ML SYR 10 MG/ML ML ONE (07:26)
[2022-05-19] MEDS: INSULIN HUMULIN R 100 UNIT/ML 3ML SQ SCH ×4 (07:30→20:19)
[2022-05-19 07:46] LABS: INR 1.05 (0.85-1.15); PROTHROMBIN TIME 11.4 SEC (9.6-11.6)
[2022-05-19 07:47] LABS: PARTIAL THROMBOPLASTIN TIME 28.5 SEC (26.3-35.5)
[2022-05-19] MEDS ORDERED: GLYCOPYRROLATE 1 MG/5 ML SYRINGE ONE (08:20)
[2022-05-19] MEDS: MIDODRINE HCL 5 MG TABLET PO SCH ×3 (09:00→20:25)
[2022-05-19] MEDS: ENOXAPARIN SODIUM 40 MG/0.4 ML SYRINGE SQ SCH (09:00)
[2022-05-19] MEDS ORDERED: NEOSTIGMINE 5MG/5ML SYR IV ONE (09:22)
[2022-05-19] MEDS ORDERED: HYDROMORPHONE 0.5 MG SYG (0.5MG/0.5ML) IVP PRN (09:30)
[2022-05-19] MEDS: PANTOPRAZOLE 40 MG/VIAL IVP SCH ×2 (10:05→20:25)
[2022-05-19] MEDS: VANCOMYCIN 750MG VIAL IVPB SCH ×2 (10:06→17:31)
[2022-05-19] MEDS: FLUCONAZOLE 400 MG/NS 200 ML 200 ML IV SCH (10:06)
[2022-05-19] MEDS: DEXAMETHASONE SOD PHOSPHATE 4 MG/ML 1ML VIAL IV SCH ×2 (10:06→20:25)
[2022-05-19] MEDS: SODIUM HYPOCHLORITE 0.25% [HALF STRENGTH] 473 ML TOPICAL SOLN TP SCH ×2 (10:09→22:16)
[2022-05-19] MEDS: ARTIFICAL TEARS SOL 15 ML OU SCH ×2 (10:09→20:25)
[2022-05-19] MEDS: ACETAMINOPHEN 325 MG TAB PO PRN (18:27)
[2022-05-20] VITALS (46 sets, daily range): BP systolic 90–129; BP diastolic 45–78
[2022-05-20] MEDS: MEROPENEM 1 GM VIAL IVP SCH ×2 (01:33→13:15)
[2022-05-20] MEDS: VANCOMYCIN 750MG VIAL IVPB SCH ×2 (05:44→18:09)
[2022-05-20] MEDS: LEVOTHYROXINE 100 MCG TABLET PO SCH (05:44)
[2022-05-20 06:35] LABS: BASOPHILS % (AUTO) 0.1 % (0.0-5.0); HEMATOCRIT 31.1 % (42-54); LYMPHOCYTES % (AUTO) 3.3 % (21.0-51.0); MEAN CORPUSCULAR HEMOGLOBIN 26.4 pg (27.0-33.0); MEAN CORPUSCULAR HGB CONC 31.5 g/dL (32.0-36.0); MEAN CORPUSCULAR VOLUME 83.8 fL (79-99); MONOCYTES % (AUTO) 5.2 % (3.0-13.0); NEUTROPHILS % (AUTO) 90.7 % (40.0-77.0); PLATELET COUNT (AUTO) 339 K/uL (130-400); RED BLOOD CELL COUNT(AUTO) 3.71 MIL/uL (4.50-6.20); RED CELL DISTRIBUTION WIDTH 18.4 % (11.0-15.5); WHITE BLOOD COUNT (AUTO) 12.6 K/uL (4.8-10.8)
[2022-05-20 06:54] LABS: CREATININE 0.8 mg/dL (0.5-1.5); POTASSIUM 4.1 mmol/L (3.5-5.1)
[2022-05-20] MEDS: INSULIN HUMULIN R 100 UNIT/ML 3ML SQ SCH ×4 (07:30→23:54)
[2022-05-20] MEDS: MAGNESIUM 2GM PREMIX 50ML 50 ML IV PRN ×2 (08:05→12:42)
[2022-05-20] MEDS: FLUCONAZOLE 400 MG/NS 200 ML 200 ML IV SCH (08:05)
[2022-05-20] MEDS: ENOXAPARIN SODIUM 40 MG/0.4 ML SYRINGE SQ SCH (08:06)
[2022-05-20] MEDS: PANTOPRAZOLE 40 MG/VIAL IVP SCH ×2 (08:06→20:20)
[2022-05-20] MEDS: SODIUM HYPOCHLORITE 0.25% [HALF STRENGTH] 473 ML TOPICAL SOLN TP SCH ×2 (08:07→20:21)
[2022-05-20] MEDS: DEXAMETHASONE SOD PHOSPHATE 4 MG/ML 1ML VIAL IV SCH ×2 (08:07→20:20)
[2022-05-20] MEDS: ARTIFICAL TEARS SOL 15 ML OU SCH ×2 (08:07→20:21)
[2022-05-20] MEDS: MIDODRINE HCL 5 MG TABLET PO SCH ×3 (08:27→20:20)
[2022-05-20] MEDS ORDERED: ALTEPLASE 2MG VIAL 2 MG/VIAL VIAL IVCATH SCH (09:00)
[2022-05-21] VITALS (22 sets, daily range): BP systolic 91–132; BP diastolic 46–88
[2022-05-21] MEDS: MEROPENEM 1 GM VIAL IVP SCH (01:26)
[2022-05-21] MEDS: LACTULOSE 20 GM/30 ML UDCUP PO PRN (02:16)
[2022-05-21] MEDS: VANCOMYCIN 750MG VIAL IVPB SCH (05:07)
[2022-05-21] MEDS: INSULIN HUMULIN R 100 UNIT/ML 3ML SQ SCH ×2 (05:36→11:59)
[2022-05-21] MEDS: LEVOTHYROXINE 100 MCG TABLET PO SCH (05:36)
[2022-05-21 06:07] LABS: HEMATOCRIT 28.2 % (42-54); MEAN CORPUSCULAR HEMOGLOBIN 27.3 pg (27.0-33.0); MEAN CORPUSCULAR HGB CONC 34.4 g/dL (32.0-36.0); MEAN CORPUSCULAR VOLUME 79.4 fL (79-99); PLATELET COUNT (AUTO) 280 K/uL (130-400); RED BLOOD CELL COUNT(AUTO) 3.55 MIL/uL (4.50-6.20); RED CELL DISTRIBUTION WIDTH 18.6 % (11.0-15.5); WHITE BLOOD COUNT (AUTO) 13.8 K/uL (4.8-10.8)
[2022-05-21 06:19] LABS: CREATININE 0.8 mg/dL (0.5-1.5); POTASSIUM 3.5 mmol/L (3.5-5.1)
[2022-05-21] MEDS: POTASSIUM CHLORIDE 20MEQ/100ML 100 ML IV PRN (06:37)
[2022-05-21 08:07] LABS: BAND NEUTROPHILS % (MANUAL) 2 % (0-2); LYMPHOCYTES % (MANUAL) 2 % (22-44); MONOCYTES % (MANUAL) 3 % (2-9); SEGMENTED NEUTROPHILS % 93 % (40-70)
[2022-05-21 08:10] LABS: MAN.DIFF COMMENT-IMPRESSION MANUAL DIFFERENTIAL; PLATELET MORPHOLOGY COMMENT ADEQUATE
[2022-05-21] MEDS: ENOXAPARIN SODIUM 40 MG/0.4 ML SYRINGE SQ SCH (08:23)
[2022-05-21] MEDS: FLUCONAZOLE 400 MG/NS 200 ML 200 ML IV SCH (08:23)
[2022-05-21] MEDS: PANTOPRAZOLE 40 MG/VIAL IVP SCH (08:23)
[2022-05-21] MEDS: ARTIFICAL TEARS SOL 15 ML OU SCH (08:23)
[2022-05-21] MEDS: MIDODRINE HCL 5 MG TABLET PO SCH (08:24)
[2022-05-21] MEDS: DEXAMETHASONE SOD PHOSPHATE 4 MG/ML 1ML VIAL IV SCH (08:24)
[2022-05-21] MEDS: SODIUM HYPOCHLORITE 0.25% [HALF STRENGTH] 473 ML TOPICAL SOLN TP SCH (08:29)
[2022-05-21] MEDS ORDERED: FLUOXETINE HCL 20 MG CAPSULE PO SCH (09:00)
== END 2022-05-21 13:50 | DRG 4 ==
LOC: EDH 17:38 → EDHIP 21:21 → 2CH 23:29 → 4AH 05-09 15:10 → 2BH 05-13 05:20
PROVIDERS: ADMIT Internal Medicine Hematology & Oncology; ATTEND Internal Medicine Hematology & Oncology
PROC: 5A09357 Assistance with Respiratory Ventilation, Less than 24 Consecutive Hours, Continuous Positive Airway Pressure (ICD-10-PCS; 2022-05-12)
PROC: 5A1955Z Respiratory Ventilation, Greater than 96 Consecutive Hours (ICD-10-PCS; principal; 2022-05-13)
PROC: 0BH17EZ Insertion of Endotracheal Airway into Trachea, Via Natural or Artificial Opening (ICD-10-PCS; 2022-05-13)
PROC: 5A12012 Performance of Cardiac Output, Single, Manual (ICD-10-PCS; 2022-05-13)
PROC: 0DH63UZ Insertion of Feeding Device into Stomach, Percutaneous Approach (ICD-10-PCS; 2022-05-17)
PROC: 0B113F4 Bypass Trachea to Cutaneous with Tracheostomy Device, Percutaneous Approach (ICD-10-PCS; 2022-05-19)
PROC: 0B110F4 Bypass Trachea to Cutaneous with Tracheostomy Device, Open Approach (ICD-10-PCS; 2022-05-19)
DX: A41.9 Sepsis, unspecified organism (principal); E43 Unspecified severe protein-calorie malnutrition; J96.01 Acute respiratory failure with hypoxia; R65.21 Severe sepsis with septic shock; I46.9 Cardiac arrest, cause unspecified; I50.43 Acute on chronic combined systolic (congestive) and diastolic (congestive) heart failure; J69.0 Pneumonitis due to inhalation of food and vomit; E87.1 Hypo-osmolality and hyponatremia; D84.821 Immunodeficiency due to drugs; G72.81 Critical illness myopathy; C34.90 Malignant neoplasm of unspecified part of unspecified bronchus or lung; Z99.11 Dependence on respirator [ventilator] status; Z20.822 Contact with and (suspected) exposure to COVID-19; K31.89 Other diseases of stomach and duodenum; I95.9 Hypotension, unspecified; E86.1 Hypovolemia; C14.0 Malignant neoplasm of pharynx, unspecified; J38.01 Paralysis of vocal cords and larynx, unilateral; E86.0 Dehydration; E16.2 Hypoglycemia, unspecified; R13.12 Dysphagia, oropharyngeal phase; T45.1X5A Adverse effect of antineoplastic and immunosuppressive drugs, initial encounter; D64.9 Anemia, unspecified; E87.6 Hypokalemia; Z92.3 Personal history of irradiation; Z88.0 Allergy status to penicillin
CPT/HCPCS: 31500; 36415; 36600; 43246; 70492; 71045; 74230; 80048; 80053; 80202; 81001; 82435; 82803; 82947; 82948; 83540; 83550; 83605; 83735; 83880; 84100; 84132; 84145; 84295; 84439; 84443; 84481; 85018; 85025; 85027; 85610; 85730; 87040; 87070; 87071; 87076; 87077; 87088; 87186; 87205; 87324; 87635; 87804; 92610; 92611; 92950; 93005; 93306; 94002; 94003; 94640; 94664; 96361; 96374; 97039; 99291; C1894; C9113; G0378; J0171; J0330; J0692; J1100; J1170; J1450; J1650; J2185; J2250; J2370; J2704; J2710; J2997; J3010; J3475; J3480; J3490; J7030; J7042; J7050; J7070; J7131; P9045; Q0167; Q9967